=== PATIENT | male | born 1965 | race Caucasian/White ===

== ENCOUNTER 2021-05-28 23:37 | Inpatient (IN) | payer OTHER ==
[~2021-05-28] VITALS: Ht 170.2 cm; Wt 91.2 kg
[~2021-05-28 23:37] MED LIST: COZAAR25 MG; FENOFIBRATE160 MG PO; INDOMETHACIN50 MG PO; IRBESARTAN-HCT1 EAC1 PO; KETO10TA2 PO; NEURONTIN600 MG PO; ORPH100T PO; STOOL SOFTENER240 MG PO; ULTRAM50 MG PO
[2021-05-29] MEDS ORDERED: PREGABALIN75 MG PO (00:32)
[2021-05-29] MEDS ORDERED: FENOFIBRATE160 MG PO (00:32)
[2021-05-29] MEDS ORDERED: PREGABALIN100 MG PO (00:32)
[2021-05-29] MEDS ORDERED: GABAPENTIN800 M1 PO (00:33)
[2021-05-29] MEDS ORDERED: OMEPRAZOLE20 MG PO (00:33)
[2021-05-29] MEDS ORDERED: SYNTHROID100 MCG PO (00:33)
[2021-05-29] MEDS ORDERED: IRBESARTAN-HCT1 EAC1 PO (00:33)
[2021-06-05] MEDS ORDERED: PROTONIX40 MG PO (12:41)
[2021-06-05] MEDS ORDERED: AMOX1TAB5 PO (12:41)
== END 2021-06-05 13:10 | disposition home or self-care (01) | DRG 418 ==
LOC: ER 23:37 → SURG 05-29 14:59
PROVIDERS: ADMIT Surgery; ATTEND Surgery
PROC: 0WQF0ZZ Repair Abdominal Wall, Open Approach (ICD-10-PCS; 2021-05-30)
PROC: BF522Z0 Other Imaging of Gallbladder using Fluorescing Agent, Intraoperative (ICD-10-PCS; 2021-05-30)
PROC: 0FT44ZZ Resection of Gallbladder, Percutaneous Endoscopic Approach (ICD-10-PCS; principal; 2021-05-30 06:30)
PROC: 0DNW4ZZ Release Peritoneum, Percutaneous Endoscopic Approach (ICD-10-PCS; 2021-05-30 06:30)
DX: K80.62 Calculus of gallbladder and bile duct with acute cholecystitis without obstruction (principal); K82.1 Hydrops of gallbladder; K42.9 Umbilical hernia without obstruction or gangrene; Z20.822 Contact with and (suspected) exposure to COVID-19; K66.0 Peritoneal adhesions (postprocedural) (postinfection)

== ENCOUNTER 2021-10-26 09:54 | Outpatient (CLI) | payer OTHER ==
[~2021-10-26 09:54] MED LIST changes: +AMOX1TAB5 PO; +GABAPENTIN800 M1 PO; +OMEPRAZOLE20 MG PO; +PREGABALIN100 MG PO; +PREGABALIN75 MG PO; +PROTONIX40 MG PO; +SYNTHROID100 MCG PO
== END 2021-10-26 10:03 | disposition home or self-care (01) ==
LOC: RX STUDY 09:54
PROVIDERS: ATTEND Otolaryngology
DX: R13.13 Dysphagia, pharyngeal phase (principal)

== ENCOUNTER 2024-10-22 09:31 | Inpatient (IN) | payer OTHER ==
[~2024-10-22] VITALS: Ht 264.2 cm; Wt 102.1 kg
--- NOTE | 2024-10-22 09:55 | NUR ---
PACIENTE ALERTA Y ORIENTADO X3 QUIEN REFIERE DOLOR EN TESTICULO MIGUEL, ARDOR AL ORINAR Y REFIERE SHE EN ORINA. PACIENTE OWUSU PRESENTADO FIEBRE EN EL HOGAR, AL MOMENTO DE TRIAGE TEMPERATURA EN 101.7
[2024-10-22] MEDS ORDERED: SYNTHROID200 MCG (09:57)
[2024-10-22] MEDS ORDERED: TAMSULOSIN HCL 0.4 MG CAP PO ONE (10:15)
[2024-10-22] MEDS ORDERED: PHENAZOPYRIDINE HCL 100 MG TABLET PO ONE (10:15)
[2024-10-22] MEDS ORDERED: PIPERACILLIN/TAZOBACTAM SODIUM 3.375 GM VIAL IV ONE (10:15)
[2024-10-22] MEDS ORDERED: FAMOtidine 10 MG/ML (4ML VIAL) IV ONE (10:15)
[2024-10-22] MEDS ORDERED: ACETAMINOPHEN 325 MG TABLET PO SCH (10:16)
[2024-10-22] MEDS ORDERED: 0.9 % SODIUM CHLORIDE 1,000 ML IV SCH ×2 (10:30→19:15)
[2024-10-22 10:56] LABS: HEMATOCRIT 37.5 % (39.0-48.0); HEMOGLOBIN 12.8 g/dL (13-16.00); MEAN CELL VOLUME 96.1 fL (80.0-100.00); MEAN CORPUSCULAR HEMOGLOBIN 32.9 pg (27.00-32.0); MEAN CORPUSCULAR HGB CONC 34.2 g/dl (32.0-36.0); PLATELET COUNT 265 K/uL (150-450); RED CELL DISTRIBUTION WIDTH 12.7 % (11.5-14.5)
[2024-10-22 10:58] LABS: ERYTHROCYTE SEDIMENTATION RATE 87 mm/hr
[2024-10-22 11:13] LABS: PH,URINE 5.5 (5.0-8.0); URINE APPEARANCE Cloudy; URINE BILIRRUBIN Negative (NEGATIVE); URINE BLOOD Large; URINE COLOR Yellow; URINE GLUCOSE Negative (NEGATIVE); URINE KETONE Negative (NEGATIVE); URINE LEUKOCYTE Moderate; URINE NITRATE Positive; URINE PROTEIN 30 (NEGATIVE)
[2024-10-22 11:16] LABS: URINE EPITHELIAL CELLS 4.1 uL (0.0-38.8); URINE RBC 3896.3 uL (0.0-20.8); URINE WBC 1258.5 uL (0.0-23.2)
[2024-10-22 11:29] LABS: ALBUMIN 3.3 gm/dL (3.4-5.0); BILIRUBIN TOTAL 0.38 mg/dL (0.3-1.2); CALCIUM 9.4 mg/dL (8.5-10.1); CREATININE SERUM 1.32 mg/dL (0.70-1.30); GFR 55.32; GLOBULINA 4.9 G/DL (2.4-3.5); POTASSIUM 4.16 mEq/L (3.5-5.1); TOTAL PROTEIN 8.2 gm/dL (6.4-8.2)
[2024-10-22 11:39] LABS: URINE BACTERIA > 9821.5 uL (0.0-1933)
--- NOTE | 2024-10-22 12:00 | NUR ---
S MARSHAL ORIENTA A PACIENTE SOBRE LA ORDEN MEDICA, REFIERE ENTENDER LAS MISMAS. SE CANALIZA Y SE LE COLOCA LOS IVF'S, SE LE JEMAL LAS MUETRAS, SE LE ADMNITSRAN LOS MEDICAMENTOS Y SE LE REALIZA LAS PLACAS Y EL CT MANE LA ORDEN MEDICA.
[2024-10-22] MEDS ORDERED: CEFTRIAXONE SODIUM 2,000 MG in 0.9 % SODIUM CHLORIDE 100 ML IV SCH (19:08)
[2024-10-22] MEDS ORDERED: FAMOTIDINE/PF 20 MG in 0.9 % SODIUM CHLORIDE 100 ML IV SCH (19:10)
[2024-10-22] MEDS ORDERED: IRBESARTAN 300 MG TABLET PO SCH (19:14)
[2024-10-22] MEDS ORDERED: ACETAMINOPHEN 325 MG TABLET PO PRN (19:15)
[2024-10-22] MEDS ORDERED: HYDROCHLOROTHIAZIDE 12.5 MG CAPSULE PO SCH (19:15)
[2024-10-22] MEDS ORDERED: Pregabalin 50 MG CAPSULE PO SCH (19:31)
[2024-10-22] MEDS ORDERED: KETOROLAC TROMETHAMINE 30 MG VIAL IM ONE (19:45)
[2024-10-22] MEDS ORDERED: PHENAZOPYRIDINE HCL 100 MG TABLET PO SCH (19:45)
[2024-10-22] MEDS ORDERED: QUETIAPINE FUMARATE 25 MG TABLET PO SCH (20:23)
[2024-10-22] MEDS ORDERED: CARBIDOPA/LEVODOPA 25/100 UDTAB PO SCH (20:24)
[2024-10-22 23:56] LABS: ALBUMIN 3.2 gm/dL (3.4-5.0); CALCIUM 8.7 mg/dL (8.5-10.1); CREATININE SERUM 1.4 mg/dL (0.70-1.30); GFR 51.69; PHOSPHOROUS 2.5 mg/dL (2.5-4.9); POTASSIUM 4.1 mEq/L (3.5-5.1)
[2024-10-23 02:00] VITALS: BP 114/64; O2SAT 96
[2024-10-23] MEDS ORDERED: LEVOTHYROXINE SODIUM 100 MCG TABLET PO SCH (06:00)
[2024-10-23] MEDS ORDERED: KETOROLAC TROMETHAMINE 30 MG VIAL IM PRN (09:00)
[2024-10-23 09:58] VITALS: BP 150/73; O2SAT 98
[2024-10-23 17:34] VITALS: BP 160/83; O2SAT 95
[2024-10-24 01:35] VITALS: BP 98/54; O2SAT 96
[2024-10-24] MEDS ORDERED: GUAIFENESIN 200 MG/10 ML BLIST.PACK PO SCH (09:04)
[2024-10-24] MEDS ORDERED: IPRATROPIUM BROMIDE 0.5 MG/2.5 ML AMPUL.NEB IH SCH (09:04)
[2024-10-24 10:38] VITALS: BP 143/69; O2SAT 99
[2024-10-24] MEDS ORDERED: ACETAMINOPHEN 500 MG GEL..CAP PO PRN (15:15)
[2024-10-24 18:03] VITALS: BP 157/79; O2SAT 97
[2024-10-24] MEDS ORDERED: MEROPENEM 500 MG/VIAL VIAL IV SCH (18:28)
[2024-10-25 01:57] VITALS: BP 150/73; O2SAT 99
[2024-10-25 06:15] LABS: HEMATOCRIT 31.5 % (39.0-48.0); MEAN CELL VOLUME 95.7 fL (80.0-100.00); MEAN CORPUSCULAR HEMOGLOBIN 33.4 pg (27.00-32.0); MEAN CORPUSCULAR HGB CONC 34.9 g/dl (32.0-36.0); PLATELET COUNT 306 K/uL (150-450); RED BLOOD COUNT 3.29 M/uL (4.00-6.00); RED CELL DISTRIBUTION WIDTH 12.8 % (11.5-14.5)
[2024-10-25 06:37] LABS: ALBUMIN 2.7 gm/dL (3.4-5.0); BILIRUBIN TOTAL 0.31 mg/dL (0.3-1.2); CALCIUM 8.7 mg/dL (8.5-10.1); CREATININE SERUM 1.35 mg/dL (0.70-1.30); GFR 53.91; GLOBULINA 3.6 G/DL (2.4-3.5); POTASSIUM 4.07 mEq/L (3.5-5.1); TOTAL PROTEIN 6.3 gm/dL (6.4-8.2)
[2024-10-25 09:37] VITALS: BP 131/70; O2SAT 97
[2024-10-25] MEDS ORDERED: AMINO ACIDS 1 EACH TABLET PO SCH (13:00)
[2024-10-25] MEDS ORDERED: BENZONATATE 200 MG CAPSULE PO SCH (17:00)
[2024-10-25] MEDS ORDERED: SODIUM CHLORIDE FOR INHALATION 1 VIAL.NEB IH SCH (17:00)
[2024-10-25 18:45] VITALS: BP 156/75
[2024-10-26 01:43] VITALS: BP 138/73; O2SAT 100
[2024-10-26 09:18] VITALS: BP 157/89; O2SAT 98
[2024-10-26 18:17] VITALS: BP 182/89
[2024-10-27 02:59] VITALS: BP 124/77; O2SAT 94
[2024-10-27 09:22] VITALS: BP 159/79; O2SAT 99
[2024-10-27 18:16] VITALS: BP 157/82; O2SAT 97
[2024-10-28 03:03] VITALS: BP 137/81; O2SAT 94
[2024-10-28 09:09] VITALS: BP 164/89; O2SAT 99
[2024-10-28 15:33] LABS: HEMATOCRIT 31.9 % (39.0-48.0); HEMOGLOBIN 11.1 g/dL (13-16.00); MEAN CORPUSCULAR HEMOGLOBIN 33.4 pg (27.00-32.0); MEAN CORPUSCULAR HGB CONC 34.8 g/dl (32.0-36.0); PLATELET COUNT 480 K/uL (150-450); RED BLOOD COUNT 3.32 M/uL (4.00-6.00); RED CELL DISTRIBUTION WIDTH 12.8 % (11.5-14.5)
[2024-10-28 15:59] LABS: CALCIUM 9.5 mg/dL (8.5-10.1); GFR 76.22; POTASSIUM 4.67 mEq/L (3.5-5.1)
[2024-10-28 18:22] VITALS: BP 160/85; O2SAT 97
[2024-10-28] MEDS ORDERED: PANTOPRAZOLE SODIUM 40 MG TABLET.DR PO SCH (21:20)
[2024-10-28] MEDS ORDERED: LEVALBUTEROL HCL 0.63 MG/3 ML SOLUTION IH SCH (21:25)
[2024-10-28] MEDS ORDERED: BUDESONIDE 0.5 MG/2 ML AMPUL.NEB IH SCH (21:25)
[2024-10-29 03:25] VITALS: BP 113/66; O2SAT 97
[2024-10-29 08:58] VITALS: BP 156/90; O2SAT 96
[2024-10-29 16:43] VITALS: BP 147/84; O2SAT 97
[2024-10-29] MEDS ORDERED: KETOROLAC TROMETHAMINE 30 MG VIAL IM STA (18:27)
[2024-10-29] MEDS ORDERED: FAMOtidine 40 MG TABLET PO SCH (21:00)
== END 2024-10-29 18:40 | disposition home or self-care (01) | DRG 689 ==
LOC: ER 09:33 → MEDJ 21:19 → MEDI 21:19 → MEDJ 10-23 03:07
PROVIDERS: General Practice; Student in an Organized Health Care Education/Training Program; ADMIT Internal Medicine; ATTEND Internal Medicine
PROC: BW21YZZ Computerized Tomography (CT Scan) of Abdomen and Pelvis using Other Contrast (ICD-10-PCS; principal; 2024-10-22)
PROC: BV49ZZZ Ultrasonography of Prostate and Seminal Vesicles (ICD-10-PCS; 2024-10-23)
PROC: 02HV33Z Insertion of Infusion Device into Superior Vena Cava, Percutaneous Approach (ICD-10-PCS; 2024-10-27)
DX: N39.0 Urinary tract infection, site not specified (principal); A41.9 Sepsis, unspecified organism; N17.9 Acute kidney failure, unspecified; N45.3 Epididymo-orchitis; N41.9 Inflammatory disease of prostate, unspecified; B96.20 Unspecified Escherichia coli [E. coli] as the cause of diseases classified elsewhere